=== PATIENT | male | born 1980 | race Caucasian/White ===

== ENCOUNTER 2017-08-11 10:15 | Inpatient (IN) | payer MEDICAID ==
[~2017-08-11] VITALS: Ht 160 cm; Wt 72.1 kg
[~2017-08-11 10:15] MED LIST: NOCURR
[2017-08-11 12:22] VITALS: BP 124/82
[2017-08-11] MEDS ORDERED: DIVA500T35 PO (12:47)
[2017-08-11] MEDS ORDERED: CHLO100T24 PO (12:47)
[2017-08-11 13:10] VITALS: BP 115/69
[2017-08-11 16:06] VITALS: BP 116/64
[2017-08-12 01:04] VITALS: BP 122/72
[2017-08-12] MEDS: ZOLPIDEM TARTRATE 10 MG TABLET PO PRN (01:05)
[2017-08-12 08:09] LABS: BASOPHILS % (AUTO) 0.4 % (0.0-2.0); EOSINOPHILS % (AUTO) 2.1 % (1.0-6.0); HEMATOCRIT 42.7 % (41-53); HEMOGLOBIN 14.9 g/dL (13.5-17.5); LYMPHOCYTES # (AUTO) 2.1 K/uL (1.0-4.8); LYMPHOCYTES % (AUTO) 37.2 % (22.0-44.0); MEAN CORPUSCULAR HEMOGLOBIN 29.7 pg (26.0-34.0); MEAN CORPUSCULAR HGB CONC 34.9 G/dL (31.0-37.0); MEAN CORPUSCULAR VOLUME 85 fL (80-100); MONOCYTES # (AUTO) 0.4 K/uL (0.1-1.0); NEUTROPHILS % (AUTO) 53.3 % (40.0-70.0); PLATELET COUNT (AUTO) 273 K/uL (150-450); RED BLOOD CELL COUNT(AUTO) 5.02 MIL/uL (4.50-5.90); RED CELL DISTRIBUTION WIDTH 13.8 % (11.5-14.5)
[2017-08-12 08:12] VITALS: BP 129/80
[2017-08-12 08:34] LABS: ALANINE AMINOTRANSFERASE 64 U/L (12-78); ALBUMIN 3.1 g/dL (3.4-5.0); ALKALINE PHOSPHATASE 33 U/L (46-116); ANION GAP 5 mmol/L (8-16); ASPARTATE AMINOTRANSFERASE 27 U/L (15-37); BILIRUBIN,TOTAL 0.5 mg/dL (0.1-1.0); CALCIUM, TOTAL 8.2 mg/dL (8.8-10.5); CARBON DIOXIDE 30 mmol/L (22-29); CHLORIDE 103 mmol/L (98-107); CREATININE 0.96 mg/dL (0.60-1.30); FREE T4 (FREE THYROXINE) 1.04 ng/dL (0.76-1.46); GLOMERULAR FILTR. RATE CALC > 60 mL/min (>60); GLUCOSE,RANDOM 77 mg/dL (70-110); SODIUM SERUM 138 mmol/L (136-145); THYROID STIMULATING HORMONE 0.25 uIU/mL (0.36-3.74); TOTAL PROTEIN, SERUM 6.7 g/dL (6.4-8.2); UREA NITROGEN, BLOOD 17 mg/dL (7-18)
[2017-08-12] MEDS: LORazepam 2 MG TABLET PO PRN ×2 (08:42→17:54)
[2017-08-12] MEDS: ARIPiprazole 10 MG TABLET PO SCH (13:46)
[2017-08-12 16:00] VITALS: BP 129/81
[2017-08-12] MEDS: HALOPERIDOL 5 MG TABLET PO PRN (17:54)
[2017-08-12] MEDS: MIRTAZAPINE 15 MG TABLET PO SCH (20:18)
[2017-08-13 03:45] VITALS: BP 125/97
[2017-08-13] MEDS: ARIPiprazole 10 MG TABLET PO SCH (08:15)
[2017-08-13 08:40] VITALS: BP 110/68
[2017-08-13] MEDS ORDERED: HydrOXYzine PAMOATE 25 MG CAPSULE PO PRN (13:30)
[2017-08-13 16:00] VITALS: BP 127/76
[2017-08-13] MEDS: LORazepam 2 MG TABLET PO PRN (16:52)
[2017-08-13] MEDS: ZOLPIDEM TARTRATE 10 MG TABLET PO PRN (20:47)
[2017-08-13] MEDS: MIRTAZAPINE 15 MG TABLET PO SCH (20:47)
[2017-08-14 06:20] VITALS: BP 129/88
[2017-08-14 08:07] VITALS: BP 131/78
[2017-08-14] MEDS: ARIPiprazole 10 MG TABLET PO SCH (09:10)
[2017-08-14] MEDS: NICOTINE 21 MG/24 HOUR PATCH TD SCH (11:11)
[2017-08-14] MEDS: LORazepam 2 MG TABLET PO PRN ×2 (15:00→20:44)
[2017-08-14] MEDS: HALOPERIDOL 5 MG TABLET PO PRN (15:03)
[2017-08-14 16:00] VITALS: BP 127/74
[2017-08-14] MEDS ORDERED: MIRTAZAPINE 30 MG TABLET PO SCH (21:00)
[2017-08-15 06:27] VITALS: BP 114/75
[2017-08-15 08:00] VITALS: BP 127/83
[2017-08-15] MEDS ORDERED: ARIPiprazole 15 MG TABLET PO SCH (09:00)
[2017-08-15] MEDS: LORazepam 2 MG TABLET PO PRN ×2 (09:55→20:55)
[2017-08-15] MEDS: NICOTINE 21 MG/24 HOUR PATCH TD SCH (09:55)
[2017-08-15] MEDS: HALOPERIDOL 5 MG TABLET PO PRN (10:54)
[2017-08-15 16:00] VITALS: BP 116/75
[2017-08-15] MEDS ORDERED: MIRTAZAPINE 15 MG TABLET PO SCH (21:00)
[2017-08-16 06:39] VITALS: BP 118/78
[2017-08-16 08:21] VITALS: BP 111/70
[2017-08-16] MEDS ORDERED: ARIPiprazole 10 MG TABLET PO SCH (09:00)
[2017-08-16] MEDS: NICOTINE 21 MG/24 HOUR PATCH TD SCH (09:00)
[2017-08-16 16:00] VITALS: BP 128/74
[2017-08-16] MEDS ORDERED: MIRT15 PO (16:16)
[2017-08-16] MEDS ORDERED: ARIP10TA8 PO (16:17)
== END 2017-08-16 17:00 | disposition home or self-care (01) | DRG 750 ==
LOC: B3A 12:38
PROVIDERS: ADMIT Psychiatry & Neurology Psychiatry; ATTEND Psychiatry & Neurology Psychiatry
PROC: 0HQ1XZZ Repair Face Skin, External Approach (ICD-10-PCS; principal; 2017-08-13)
DX: F25.0 Schizoaffective disorder, bipolar type (principal); R45.851 Suicidal ideations; Z91.19 Patient's noncompliance with other medical treatment and regimen; F41.9 Anxiety disorder, unspecified; F11.90 Opioid use, unspecified, uncomplicated; F60.3 Borderline personality disorder; F15.90 Other stimulant use, unspecified, uncomplicated; F12.90 Cannabis use, unspecified, uncomplicated; Z59.0 Homelessness; Z91.5 Personal history of self-harm; S01.81XA Laceration without foreign body of other part of head, initial encounter; X58.XXXA Exposure to other specified factors, initial encounter; Y92.9 Unspecified place or not applicable
CPT/HCPCS: 84439; 84443; 87081